=== PATIENT | female | born 1985 | race Caucasian/White ===

== ENCOUNTER 2022-03-09 07:01 | Day surgery (SDC) | payer OTHER ==
[2022-03-04 12:29] LABS: SARS-CoV-2 Antigen Rapid Res Negative (Negative)
[2022-03-09] MEDS ORDERED: Ringers Lactate 1,000 ML IV ONE (07:44)
[2022-03-09] MEDS ORDERED: LIDOCAINE 1% W/EPI 1:100,000 MDV 20 ML VIAL ONE (08:30)
[2022-03-09] MEDS ORDERED: LIDOCAINE 1% MPF 5 ML VIAL ONE (08:36)
[2022-03-09] MEDS ORDERED: FENTANYL CITR 100 MCG/2 ML ONE (08:36)
[2022-03-09] MEDS ORDERED: propofoL 200 MG/20 ML VIAL IV ONE (08:36)
[2022-03-09] MEDS ORDERED: MIDAZOLAM HCL 2 MG/2 ML INJ ONE (08:36)
[2022-03-09] MEDS ORDERED: dexAMETHasone 10 MG/ML VIAL ONE (09:02)
[2022-03-09] MEDS ORDERED: KETOROLAC 30 MG/ML INJ ONE (09:02)
[2022-03-09] MEDS ORDERED: ONDANSETRON 4 MG/2 ML VIAL ONE (09:04)
[2022-03-09] MEDS ORDERED: IBUPROFEN 200 MG TAB PO PRN (09:19)
[2022-03-09] MEDS ORDERED: MEPERIDINE HCL 25 MG/ML SYR IM PRN (09:19)
[2022-03-09] MEDS ORDERED: PROMETHAZINE INJ 25 MG/ML AMP IV PRN (09:19)
[2022-03-09] MEDS ORDERED: HYDROCODONE/APAP 5/325 MG TAB PO PRN (09:19)
--- NOTE | 2022-03-09 09:24 | P.BOP ---
Preoperative diagnosis: CHEPE, frequency Postoperative diagnosis: same Primary procedure: Cystoscopy, urethroscopy and urethral bulking with Bulkamid Security And Compliance Project Manager: NONE,NONE Estimated blood loss: min Specimen: none Findings: cystourethroscopy negative, Bulkamid 1.5ml used in 4 sites:5,2,11,8 o clock Anesthesia: General Complications: None Transferred to: Recovery Room Condition: Good
[2022-03-09 09:50] VITALS: O2SAT 100
[2022-03-09 12:41] VITALS: BP 126/84; TEMP 97.2
[2022-03-09 14:58] LABS: Urine Specific Gravity/Preg >1.030 (1.005-1.030)
--- NOTE | 2022-03-09 15:13 | OP ---
Date of Procedure: 03/09/2022 Surgeon: Rajni Anne MD Office Workforce Planner: None. Preoperative Diagnoses: Stress urinary incontinence and frequency. Postoperative Diagnoses: Stress urinary incontinence and frequency. Procedures Performed: Cystoscopy, urethroscopy, and urethral bulking with Bulkamid. Anesthesia: General with LMA. Complications: No complications. Drains: No drains. Condition: Stable. Specimens: No specimens. Ebl: Minimal. Disposition: Transferred to the recovery room in a stable condition. Findings: Cystourethroscopy was negative for any tumors, stones, or diverticula. Unremarkable healt hy bladder. Bulkamid was injected. 1.5 mL was used in 4 sites injected at 5, 2 o'clock, 11 and 8 o'clock positio ns and there was good lift seen after the Bulkamid was placed. Procedure In Detail: After informed consent was verified, the patient was taken back to the OR, cons ented and questions answered before she was taken back. present and by the side. The patient was placed in a supine fashion. General anesthesia was given. Placed in a dorsal lithot puja position. The vulva, vagina, and perineum were prepped and draped in a sterile fashion. Cystosc opy was performed with a 17-Indian sheath, 30-degree lens and normal saline inspecting the base of th e bladder, both ureteric orifices, the entire area of the trigone, then dome of the bladder, lateral michael. There were no abnormal findings. The bladder was drained. Urethroscopy was performed with a 0-degree scope and was negative. The urethral bulking short scope was then taken. The sheath was attached. The inflow and outflow we re attached to this. This was primed. Then the syringe was attached to the Bulkamid 1 cc syringe [facility]. Then, went ahead and inserted the needles through the sheath, placed the sheath, advanced it to the internal meatus. The bladder was drained after the cystoscopy before this was done. The needle was advanced 2 cm into the bladder while the inflow was just left at a small trickle. After advancing the needle, the entire system was pulled into the mid urethral area. Then, at 5 o'cl ock position the needle with the bevel up was injected where it was entered under the mucosa staying parallel to the urethra. After it was advanced adequately, then the bulking agent was injected. At least 2.5 mL of this was injected in this location. Then, turned to 2 o'clock and another 2.5-3 mL w as injected, then turned to 11 o'clock and injected a significant amount. Then, the syringe was take n out. A new syringe was loaded and at 8 o'clock position injection was carried on all the site of e ntry were all in a very similar plane and the opening seemed to be adequately approximated after the injections. The scope was removed after the completion. EBL was minimal. The patient was recovered from anesthesia. Instrument, needle, and sponge counts were done and were correct. She was taken t o the recovery room in stable condition. A debriefing was done to the about the procedure. Voiding trials will be done before she is discharged. She was unable to void with a good volume in h er bladder. May use a 14-Indian catheter to straight cath her and then do another voiding trial. DONALD/KAYLEIGH Voice ID: [id number] Report ID: [id number]
[2022-03-10] MEDS ORDERED: VITAMIN D 5,000 UNIT CAP PO SCH (09:00)
[2022-03-10] MEDS ORDERED: HOME MED 1 EA UNK (Lactobacillus Acidophilus [Probiotic] Capsule) PO SCH (09:00)
== END 2022-03-09 11:45 | disposition home or self-care (01) ==
LOC: OR 07:01
PROVIDERS: ATTEND Obstetrics & Gynecology
PROC: 0TVD8ZZ Restriction of Urethra, Via Natural or Artificial Opening Endoscopic (ICD-10-PCS; principal; 2022-03-09 08:30)
DX: N39.3 Stress incontinence (female) (male) (principal); N36.41 Hypermobility of urethra; N32.81 Overactive bladder; R39.14 Feeling of incomplete bladder emptying; N92.6 Irregular menstruation, unspecified; Z20.822 Contact with and (suspected) exposure to COVID-19
CPT/HCPCS: 36415; 81025; 87811; 51715; J2704; J2250; J3010; J1100; J7120; J2405; L8606

== ENCOUNTER 2022-07-06 10:16 | Day surgery (SDC) | payer OTHER ==
[2022-07-02 13:05] LABS: Absolute Lymphocytes (CBC) 1.7 K/uL (0.7-4.9); Hematocrit 42.6 % (36.0-45.0); Lymphocytes % 34.7 % (15.3-44.8); MCV 88.8 fL (80-100); MPV 8.9 fL (7.6-11.3)
[2022-07-02 13:12] LABS: Protime INR 1.25
[2022-07-02 13:18] LABS: Potassium 3.8 mmol/L (3.5-5.1)
[2022-07-02 14:07] LABS: Specific Gravity 1.006 (1.005-1.030); Urine Bilirubin NEGATIVE (Negative); Urine Blood Negative (Negative); Urine Clarity Clear (Clear); Urine Color Colorless (Yellow); Urine Glucose NEGATIVE (Negative); Urine Protein NEGATIVE (Negative); Urine Urobilinogen Normal (Normal)
[2022-07-06] MEDS ORDERED: Ringers Lactate 1,000 ML IV ONE ×2 (10:38→14:04)
[2022-07-06] MEDS ORDERED: CEFAZOLIN SODIUM 2 GM/VIAL ONE (10:38)
[2022-07-06] MEDS ORDERED: propofoL 200 MG/20 ML VIAL IV ONE (11:23)
[2022-07-06] MEDS ORDERED: ONDANSETRON 4 MG/2 ML VIAL ONE (11:23)
[2022-07-06] MEDS ORDERED: LIDOCAINE 2% MPF 5 ML VIAL ONE (11:23)
[2022-07-06] MEDS ORDERED: MIDAZOLAM HCL 2 MG/2 ML INJ ONE (11:23)
[2022-07-06] MEDS ORDERED: FENTANYL CITR 100 MCG/2 ML ONE (11:23)
[2022-07-06] MEDS: CEFAZOLIN SODIUM 1 GM/VIAL ONE ×2 (11:50→12:25)
[2022-07-06 11:54] LABS: Urine Specific Gravity/Preg >1.030 (1.005-1.030)
[2022-07-06] MEDS ORDERED: NA CHLORIDE 0.9% 100 ML IV ONE (12:04)
[2022-07-06] MEDS ORDERED: GLYCOPYRROLATE 0.2 MG/ML SYR ONE (12:23)
[2022-07-06] MEDS: VASOPRESSIN 20 UNIT/ML VIAL ONE ×2 (12:25→12:29)
[2022-07-06] MEDS ORDERED: KETOROLAC 30 MG/ML INJ ONE (12:52)
[2022-07-06] MEDS: MEPERIDINE HCL 25 MG/ML SYR ONE ×2 (13:14→13:20)
[2022-07-06] MEDS ORDERED: MEPERIDINE HCL 25 MG/ML SYR ONE (13:29)
[2022-07-06] MEDS ORDERED: HYDROMORPHONE HCL 1 MG/ML INJ ONE (13:50)
[2022-07-06] MEDS ORDERED: PROMETHAZINE INJ 25 MG/ML AMP ONE (16:03)
--- NOTE | 2022-07-06 16:17 | OP ---
Date of Procedure: 07/06/2022 Surgeon: Rajni Anne MD Jet Mechanic: Anna Musa. Preoperative Diagnoses: Stress urinary incontinence from her urethral hypermobility and slow stream. Postoperative Diagnoses: Stress urinary incontinence from her urethral hypermobility and slow stream . Procedures: 1.Transobturator mid urethral sling and cystoscopy (Obtryx). 2.Urethral dilation to 25-Vietnamese. Estimated Blood Loss: Minimal. Specimens: No specimens. Complications: No complications. Drains: Haynes catheter. Condition: Patient's condition stable. Implants: Obtryx transobturator outside-in tape. Findings: On cystoscopy, no evidence of any bladder injury. Bladder appeared to be unremarkable. U rethra dilated to 25-Vietnamese; 21, 23, and 25. Indication: Patient is a 36-year-old female, 2, para 2, 1 , 1 vaginal delivery with significant stress urinary incontinence and a slow stream. She had urethral bulking and her symptom s were not better. In the office, she underwent urethral dilation and her symptoms still continued t o be the same. With incontinence as a major problem and the stream being slow and taking some time t o initiate, both hesitancy being intermittent problems. She noticed that she had reported that her stream appears to be slower since the bulking. However, o n further retrospective questioning that she recollected that this problem had occurred a previous ti me, but not persistent like as it is now. No significant change after urethral dilations and so she was consented for a transobturator midureth ral sling and brought to the OR with urethral hypermobility was significant and so this was the reaso n why we brought her. I explained all the benefits, risks and complications of this procedure and co nsented her. Description Of Procedure: After 2 g of Ancef were given, she was taken back to the OR, placed in a s upine fashion on the operating table. General anesthesia was given, placed in dorsal lithotomy posit ion. Lower abdomen, vulva, vagina, and perineum were prepped and draped in a sterile fashion. Haynes was placed to drain the bladder and then clamped and was retracted superiorly. Mid urethral area wa s picked up with 2 Allis clamps. UVJ was identified. The subfascial tissues were injected with the dilute vasopressin and the entire tract of the tape and a 1.5 cm mid urethral incision was made on th e vaginal epithelium, subepithelium, and connective tissue. A tract was created on each side towards the ipsilateral obturator space at a 45-degree angle. hugging the inferior pubic ramus. Obturator membrane was perforated first on the right, then on the left. I attempted to place the wing guide wi thout any problems and attempted to pass the FELIPE sling spike without success. Unable to pass through the obturator fascia. It was very tough and I did not feel comfortable using this anymore. I tried it on both sides, 2 passes each and as the FELIPE sling spike was difficult to pass, aborted this. I got a transobturator outside-in sling and an incision was made a centimeter above the horizontal li ne dropped at the external meatus with the patient in lithotomy. Then made a skin incision here and the needle was passed directly straight down medial to the border of the inferior pubic ramus. Then my finger that was bare, after the dissection was expanded too allowed my finger. The point of the s pike was taken to my finger and then let out through the tract that was created. The spike was retra cted out and the sling was hooked up to this and pulled back out and held with a clamp. Similar pass on opposite side was taken. The tape was tensioned appropriately. After antibiotic irrigation, I w ent ahead and cut the plastic sheaths out on both sides. Mesh was tensioned in the center plastic sh eath. Bradley was also cut. Antibiotic irrigation was done again, excellent hemostasis, closed with the help of 3-0 Vicryl in a horizontal mattress fashion and Dermabond at both external incisions. Sh e was cleaned up. Cystoscopy was performed with a 17-Vietnamese sheath, 30-degree lens, normal saline. Even after the spikes were removed, but still attached to the dilator. No evidence of any trauma to the bladder or mesh in the bladder. The bladder was then drained. After the above was completed, dilated the urethra from 21 to 25-Vietnamese using dilators and gel. Once this was done, bladder was drained. Haynes was replaced. She was recovered from anesthesia and take n to PACU in stable condition. EBL minimal. SK/MODL Voice ID: [id number] Report ID: [id number]
[2022-07-06] MEDS ORDERED: HYDROCODONE/APAP 5/325 MG TAB ONE (16:37)
[2022-07-06 17:22] VITALS: TEMP 97; O2SAT 98
[2022-07-06 17:24] VITALS: BP 115/70
== END 2022-07-06 17:00 | disposition home or self-care (01) ==
LOC: OR 10:16
PROVIDERS: ATTEND Obstetrics & Gynecology
PROC: 0T7D7ZZ Dilation of Urethra, Via Natural or Artificial Opening (ICD-10-PCS; 2022-07-06)
PROC: 0TSD0ZZ Reposition Urethra, Open Approach (ICD-10-PCS; principal; 2022-07-06 12:00)
DX: N39.3 Stress incontinence (female) (male) (principal); R39.198 Other difficulties with micturition; N36.41 Hypermobility of urethra; N32.81 Overactive bladder; R39.11 Hesitancy of micturition
CPT/HCPCS: 57288; 53665; 85025; 80048; 36415; 86900; 86850; 81025; 85610; 86901; 85730; 81003; J2704; J2550; J2001; J2250; J3010; J2175 ×2; J1170; J7120 ×2; J2405; J0690